=== PATIENT | female | born 1950 | race Hispanic/Latino ===

== ENCOUNTER 2016-09-30 06:07 | Day surgery (SDC) | payer OTHER ==
[2016-09-27 08:40] VITALS: BMI 34.7
--- NOTE | 2016-09-30 06:27 | CP.SDSHP ---
Same Day Surgery H & P - History Proposed Procedure: removal of painful hardware left ankle Pre-Op Diagnosis: 6 months s/p ORIF left ankle fracture, painful hardware left ankle - Previous Medical/Surgical History Cardiac: Hypertension Pain: 5. Previous Surgical History: ORIF left ankle 03/27/17 - Allergies Allergies: Allergies No Known Allergies Allergy (Verified 03/30/16 14:12) - Physical Exam Vital Signs: Vital Signs 09/30/16 06:26 Temperature 97.6 F Pulse Rate 72 Respiratory 20 Rate Blood Pressure 170/100 H O2 Sat by Pulse 96 Oximetry Mental Status: Alert & Oriented x3 Neuro: WNL - {Optional Preform as Required} Integument: WNL (well healed cicatrix to lateral ankle) Ortho: Other (tenderness to palpation lateral malleolus) - Impression Impression: Pt was seen and examined in [facility]. Pt NPO status was confirmed. All Pre-op testing and clearance was in the chart. Pt has exhausted all conservative treatment at this time and is opting for surgical intervention. Pt was explained procedure and post-operative course. All pt's questions were answered to satisfaction. No guarantees were made. Pt understands all risks, benefits and complications of procedure. Pt will follow-up with Dr. Yang Short Stay Discharge - Short Stay Discharge Admitting Diagnosis/Reason for Visit: L90.5/T84.66XA Disposition: HOME/ ROUTINE Referrals: Frederick Padilla MD [Primary Care Provider] - Smith Yang DPM [Staff Provider] - Instructions: RICE Therapy (GEN) Additional Instructions (Diet, Activity): --Patient in good/stable condition for discharge home. Pt to resume medications per medical reconciliation. Resume regular diet. Please keep dressing clean, dry, & intact to surgical site, use plastic bag over bandage for showering, wear post op shoe at all times when ambulating, call clinic if you see signs of infection (redness, swelling, malodor), please make an appointment to see Dr. Yang in office/clinic within 1 week for post-op check. Progress Note/Discharge Note with Instructions: - Patient evaluated bedside in recovery s/p surgical procedure. - After surgical procedure patient in NAD - (+) Void, (+) Appetite - Capillary refill time <3s and NVSI intact. - Patient denies complaints at this time - Post operative instructions and plan of care explained to patient at length. - Pt. acknowledges understanding. - Patient stable for DC per podiatric surgery
--- NOTE | 2016-09-30 06:27 | CP.PCM.PN ---
Subjective - Date & Time of Evaluation Date of Evaluation: 09/30/16 Time of Evaluation: 06:20 - Subjective Subjective: 65 yo female patient seen at bedside in [facility] this morning for pre-operative evaluation of left ankle. Of note, patient had ORIF for left ankle fracture and is here today for removal of hardware. Pt says she is having pain to the outside of her left ankle today especially bothersome when walking. Has been walking with regular sneakers and ankle brace. Denies eating/drinking anything since midnight last night. Says she is ready for surgery today. Objective - Vital Signs/Intake and Output Vital Signs (last 24 hours): Temp Pulse Resp BP Pulse Ox 97.6 F 72 20 170/100 H 96 09/30/16 06:26 09/30/16 06:26 09/30/16 06:26 09/30/16 06:26 09/30/16 06:26 - Constitutional Appears: Well, Non-toxic, No Acute Distress - Extremities Exam Additional comments: LLE focused VASC- DP/PT pulses palpable, skin temp runs warm to cool, cap refill < 3 sec to digits x 5, slight edema noted to lateral malleolus DERM- well healed cicatrix noted to lateral aspect of ankle NEURO- pedal sensation grossly intact ORTHO- tenderness to distal aspect of fibula and over lateral malleolus, pedal muscle strength 5/5 in all directions - Neurological Exam Neurological Exam: Alert, Awake, Oriented x3 - Psychiatric Exam Psychiatric exam: Normal Affect, Normal Mood Assessment and Plan - Assessment and Plan (Free Text) Assessment: 66 yo female pt 6 months s/p ORIF left ankle with painful hardware Plan: Pt was seen and examined in [facility] Pt NPO status was confirmed All Pre-op testing and clearance was in the chart Pt has exhausted all conservative treatment at this time and is opting for surgical intervention Pt was explained procedure and post-operative course All pt's questions were answered to satisfaction No guarantees were made Pt understands all risks, benefits and complications of procedure Pt will follow-up with Dr. Yang
[2016-09-30] MEDS ORDERED: Lidocaine 1% Inj (20ml) IJ ONE (06:34)
[2016-09-30] MEDS ORDERED: ceFAZolin 1 GM in Sodium Chloride 0.9% 100 ML IVPB ONE (06:34)
[2016-09-30] MEDS ORDERED: Bupivacaine 0.5% Inj(30mL) IJ ONE (06:34)
[2016-09-30] MEDS ORDERED: Lactated Ringer's 1,000 ML IV ONE (07:37)
[2016-09-30] MEDS ORDERED: Bupivacaine 0.5% 50 ML IJ ONE (08:40)
[2016-09-30] MEDS ORDERED: MethylPREDNISolone Depo 40 mg/ml Inj IM ONE (08:40)
[2016-09-30] MEDS ORDERED: Dexamethasone 4 mg/1 ml IM ONE (08:40)
[2016-09-30] MEDS ORDERED: Dexamethasone 4 mg/1 ml IVP PRN (08:57)
--- NOTE | 2016-09-30 09:01 | PCM.SURG1 ---
Surgeon's Initial Post Op Note - Surgeon's Notes Surgeon: Dr. Yang Ward Assistant: Dr. Walden PGY-1 Type of Anesthesia: General LMA Anesthesia Administered By: Dr. Rmaos Pre-Operative Diagnosis: painful hardware left ankle and postraumatic ankle arthritis Operative Findings: see operative Post-Operative Diagnosis: same Operation Performed: removal of painful left ankle hardware, manipulation of left ankle under anesthesia Specimen/Specimens Removed: soft tissue left ankle, synthes plate and screws x 2 Estimated Blood Loss: EBL {In ML}: 3 Blood Products Given: N/A Drains Used: No Drains Post-Op Condition: Good Date of Surgery/Procedure: 09/30/16 Time of Surgery/Procedure: 07:45
[2016-09-30] MEDS ORDERED: Oxycodone/Acetaminophen 5/325 mg Tab PO PRN ×2 (09:03)
[2016-09-30] MEDS: HYDROmorphone 0.5 mg/0.5 ml ISec IVP PRN ×2 (09:07→09:20)
[2016-09-30] MEDS ORDERED: Oxycodone/Acetaminophen 5/325 mg Tab PO ONE (12:54)
[2016-09-30 13:02] VITALS: BP 151/85; PULSE 98; RESP 20; TEMP 97.5
[2016-09-30 13:41] VITALS: O2SAT 98
--- NOTE | 2016-10-01 22:14 | OP ---
PROCEDURE DATE: 09/30/2016 SURGEON: Dr. Yang. MAINTENANCE SHOP MANAGER: Dr. Mckeon, PGY-1. PLASTIC JOINT MAKER: Dr. Ramos. ANESTHESIA: General LMA. PREOPERATIVE DIAGNOSIS: Painful hardware, left ankle, and posttraumatic ankle arthritis. POSTOPERATIVE DIAGNOSIS: Painful hardware, left ankle, and posttraumatic ankle arthritis. NAME OF PROCEDURE: 1. Removal of painful hardware. 2. Manipulation of left ankle under anesthesia. INDICATIONS: The patient is a 66-year-old female with the above diagnosis. The patient sustained a left ankle fracture while on outside hospital property at [facility] on 03/27/2016. The patient underwent open reduction internal fixation of left ankle fracture that same day with Dr. Yang. The patient is now 6 months status post surgery and is having continued pain to the left ankle. At this time, the patient has exhausted all conservative treatment options, now requests surgical intervention. The patient signed the consent after careful explanation of risks, benefits, complications and alternatives for surgical procedure. No guarantees were given nor implied. 2 g of Ancef IV were given to the patient one-half hour prior to the procedure. N.p.o. status was confirmed prior to taking the patient to the OR. PREPARATION: The patient was brought to the operating room and placed on the operating table in the supine position. A well-padded pneumatic tourniquet was then placed in the patient's left thigh. After induction of general anesthesia , the foot was then prepped and draped in usual sterile manner. Esmarch was utilized to exsanguinate the patient's left foot. Pneumatic ankle tourniquet was inflated to 350 mmHg and the procedure began. DESCRIPTION OF PROCEDURE: Attention was then directed to the lateral aspect of the left ankle where a well-healed cicatrix was noted measuring approximately 12 cm in length. At this time, a #15 blade was utilized to make an 8 cm incision overlying the lateral malleolus using the previous incision site. The incision was then deepened to the subcutaneous tissues using sharp and blunt dissection. Care was taken to identify and retract all vital neurovascular structures and cauterize all bleeders as necessary. The incision was then deepened down to the level of bone where a plate and 2 screws were encountered. Next, using the Synthes 3.5 screwdriver, 2 screws were then removed from the plate disease (one 3.5 mm x 18 mm proximally and one 4.0 mm x 30 mm distally). Next, a [place] elevator was utilized to remove the Synthes 3.5 mm hook plate in the lateral aspect of the fibula. At this time, intraoperative fluoroscopic imaging was taken to confirm removal of all hardware. Next, the ankle joint was then manipulated under anesthesia with forced dorsiflexion and plantarflexion of the foot. At this time, the surgical wound was then copiously flushed with normal sterile saline. A #2-0 Vicryl suture was utilized to reapproximate the subcutaneous layers. The subcuticular layer was then reapproximated with #3-0 Vicryl and skin edges were reapproximated with skin angel. Next, the surgical site was then dressed with Xeroform, DSD, ABD , Kerlix and Harpal. POSTOPERATIVE CONDITION: The patient tolerated the anesthesia and procedure well and was escorted to the recovery room with vital signs stable and neurovascular status intact to the right lower extremity. This patient will be weightbearing as tolerated to the right foot with surgical shoe. She is to follow up with Dr. Yang as outpatient. DA MCKEON DPM Smith Yang DPM cc: [id number] TT: 10/01/2016 22:13:41 desire SANCHES
== END 2016-09-30 13:49 | disposition home or self-care (01) ==
LOC: H.OPSURG 06:07
PROVIDERS: ATTEND Podiatrist Foot & Ankle Surgery
DX: T84.84XA Pain due to internal orthopedic prosthetic devices, implants and grafts, initial encounter (principal); Y84.8 Other medical procedures as the cause of abnormal reaction of the patient, or of later complication, without mention of misadventure at the time of the procedure; M19.172 Post-traumatic osteoarthritis, left ankle and foot